=== PATIENT | female | born 1970 | race Caucasian/White ===

== ENCOUNTER 2020-02-06 15:50 | Emergency (ER) | payer OTHER ==
--- NOTE | 2020-02-06 17:00 | EDM.PDOC ---
ED HPI GENERAL MEDICAL PROBLEM - General Chief Complaint: Upper Extremity Injury/Pain Stated Complaint: SWELLING IN ELBOW Time Seen by Provider: 02/06/20 16:11 Source of Information: Reports: Patient History Limitations: Reports: No Limitations - History of Present Illness INITIAL COMMENTS - FREE TEXT/NARRATIVE: Pt. presents to ER with complaints of swelling and redness to L elbow. Pt. states that the symptoms started several days ago. Denies any fever or chills. No nausea or vomiting. Pt. denies any history of MRSA in the past. Pt. states that the symptoms are isolated to the L elbow. Pt. denies any chest pain, shortness of breath, lightheadedness, or numbness/tingling in the distal portion of the extremity. Onset: Today Location: Reports: Upper Extremity, Left Quality: Reports: Throbbing Severity: Severe Improves with: Reports: Rest Worsens with: Reports: Movement Associated Symptoms: Denies: Fever/Chills Left Elbow Pain Score (Numeric/FACES): 8 - Related Data Allergies Allergy/AdvReac Type Severity Reaction Status Date / Time Penicillins Allergy Rash Verified 02/06/20 16:15 Home Meds: Home Meds Acetaminophen 650 mg PO Q6HR PRN 06/13/13 [History] Aspirin [Halfprin] 81 mg PO DAILY 06/13/13 [History] Cyclobenzaprine [Flexeril] 10 mg PO BEDTIME PRN 06/13/13 [History] Ibuprofen 200 mg PO Q6HR PRN 06/13/13 [History] Metoprolol Succinate [Toprol XL] 50 mg PO DAILY 06/13/13 [History] Telmisartan [Micardis] 80 mg PO DAILY 06/13/13 [History] Metoprolol Tartrate 100 mg PO DAILY 02/06/20 [History] Past Medical History Cardiovascular History: Reports: Hypertension - Past Surgical History GI Surgical History: Reports: Appendectomy Female Surgical History: Reports: Section, Hysterectomy Social & Family History - Tobacco Use Smoking Status *Q: Never Smoker - Alcohol Use Days Per Week of Alcohol Use: 7 Number of Drinks Per Day: 1 Total Drinks Per Week: 7 - Recreational Drug Use Recreational Drug Use: No Review of Systems - Review of Systems Review Of Systems: See Below Constitutional: Reports: No Symptoms Eyes: Reports: No Symptoms Ears: Reports: No Symptoms Nose: Reports: No Symptoms Mouth/Throat: Reports: No Symptoms Respiratory: Reports: No Symptoms Cardiovascular: Reports: No Symptoms GI/Abdominal: Reports: No Symptoms Genitourinary: Reports: No Symptoms Musculoskeletal: Reports: Arm Pain Skin: Reports: No Symptoms Neurological: Reports: No Symptoms Psychiatric: Reports: No Symptoms ED EXAM, GENERAL - Physical Exam Exam: See Below Exam Limited By: No Limitations General Appearance: Alert, WD/WN, No Apparent Distress Respiratory/Chest: No Respiratory Distress, Lungs Clear, Normal Breath Sounds, No Accessory Muscle Use, Chest Non-Tender Cardiovascular: Normal Peripheral Pulses, Regular Rate, Rhythm, No Edema, No Gallop, No JVD, No Murmur Peripheral Pulses: 4+: Radial (L), Radial (R) Extremities: Other (area of cellulitis noted to L elbow. No obvious abscess noted. There appears to be an area that was open but the patient denies any discharge from the area. No palpable abscess noted. Area measures 13x14 cm and had been outlined in ink.) Course - Vital Signs Last Recorded V/S: Last Vital Signs Temp 36.6 C 02/06/20 16:11 Pulse 87 02/06/20 17:45 Resp 16 02/06/20 17:45 BP 160/98 H 02/06/20 17:45 Pulse Ox 97 02/06/20 17:45 - Orders/Labs/Meds Orders: Active Orders 24 hr Category Date Time Status CULTURE BLOOD [BC] Stat Lab 02/06/20 16:25 Received CULTURE BLOOD [BC] Stat Lab 02/06/20 16:31 Received Blood Culture x2 Reflex Set [OM.PC] Stat Oth 02/06/20 16:11 Ordered Labs: Laboratory Tests 02/06/20 02/06/20 02/06/20 Range/Units 16:25 16:25 16:25 WBC 12.9 H (4.0-10.0) x10^3/uL RBC 4.21 (4.00-5.50) x10^6/uL Hgb 13.1 (12.0-16.0) g/dL Hct 38.5 (33.0-47.0) % MCV 91.4 (78.0-93.0) fL MCH 31.1 (26.0-32.0) pg MCHC 34.0 (32.0-36.0) g/dL RDW Coeff of Manisha 12.7 (10.0-15.0) % Plt Count 249 (130-400) x10^3/uL Neut % (Auto) 77.0 (50.0-80.0) % Lymph % (Auto) 16.1 L (25.0-50.0) % [place] % (Auto) 5.7 (2.0-11.0) % Eos % (Auto) 1.0 (0.0-4.0) % Baso % (Auto) 0.2 (0.2-1.2) % Sodium 137 (136-145) mmol/L Potassium 3.0 L (3.5-5.1) mmol/L Chloride 98 (98-107) mmol/L Carbon Dioxide 29 (21-32) mmol/L Anion Gap 13.0 (10-20) mmol/L BUN 9 (7-18) mg/dL Creatinine 0.7 (0.55-1.02) mg/dL Est Cr Clr Drug Dosing 91.01 mL/min Estimated GFR (MDRD) > 60 Glucose 120 H (74-106) mg/dL Lactic Acid 1.2 (0.4-2.0) mmol/L Calcium 8.5 (8.5-10.1) mg/dL Corrected Calcium 8.58 (8.5-10.1) mg/dL Total Bilirubin 0.7 (0.2-1.0) mg/dL AST 26 (15-37) U/L ALT 51 (14-59) U/L Alkaline Phosphatase 90 (46-116) U/L C-Reactive Protein 2.6 H (<=0.9) mg/dL Total Protein 7.4 (6.4-8.2) g/dL Albumin 3.9 (3.4-5.0) g/dL Globulin 3.5 Albumin/Globulin Ratio 1.11 Meds: Medications Discontinued Medications Generic Name Dose Route Start Last Admin Trade Name Jaxq PRN Reason Stop Dose Admin Hydrocodone Bitart/Acetaminophen 1 packet 02/06/20 17:13 02/06/20 17:25 Take Home: Acetam/Hydrocodon 325-5 Mg, 5 Pack PO 02/06/20 17:14 1 packet ONETIME ONE Administration Cefazolin Sodium 2 gm 02/06/20 17:09 02/06/20 17:28 Ancef IVPUSH 02/06/20 17:10 2 gm ONETIME ONE Administration Cefazolin Sodium Confirm 02/06/20 17:35 02/06/20 17:36 Ancef Administered 02/06/20 17:36 Not Given Dose 1 gm .ROUTE .STK-MED ONE Trimethoprim/Sulfamethoxazole 1 packet 02/06/20 17:13 02/06/20 17:25 Take Home: Sulfameth/Trimet 800-160mg, 2 Pack PO 02/06/20 17:14 1 packet ONETIME ONE Administration Departure - Departure Time of Disposition: 18:08 Disposition: Home, Self-Care 01 Clinical Impression: Cellulitis - Discharge Information Instructions: Acetaminophen; Hydrocodone tablets or capsules, Cellulitis, Adult, Sulfamethoxazole; Trimethoprim, SMX-TMP tablets, Probiotics Referrals: Tanika Marti DO [Primary Care Provider] - Forms: ED Department Discharge Additional Instructions: Bactrim DS 1 twice daily for 10 days [place] 5/325mg 1 every 6 hours as needed for pain You can also take aleve or ibuprofen to help with the discomfort/fever. Follow-up in clinic on Thursday, return to ER as needed. Sepsis Event Note (ED) - Evaluation Sepsis Screening Result: No Definite Risk - Focused Exam Vital Signs: Vital Signs Temp Pulse Resp BP Pulse Ox 02/06/20 17:45 87 16 160/98 H 97 02/06/20 16:11 36.6 C 89 16 149/91 H 97 - Problem List Review Problem List Initiated/Reviewed/Updated: Yes - My Orders Last 24 Hours: My Active Orders 02/06/20 16:11 Blood Culture x2 Reflex Set [OM.PC] Stat 02/06/20 16:25 CULTURE BLOOD [BC] Stat 02/06/20 16:31 CULTURE BLOOD [BC] Stat - Assessment/Plan Last 24 Hours: My Active Orders 02/06/20 16:11 Blood Culture x2 Reflex Set [OM.PC] Stat 02/06/20 16:25 CULTURE BLOOD [BC] Stat 02/06/20 16:31 CULTURE BLOOD [BC] Stat Plan: Bactrim DS 1 twice daily for 10 days [place] 5/325mg 1 every 6 hours as needed for pain You can also take aleve or ibuprofen to help with the discomfort/fever. Follow-up in clinic on Thursday, return to ER as needed.
[2020-02-06 17:04] LABS: CHLORIDE,CL 98 mmol/L (98-107); SODIUM,NA 137 mmol/L (136-145)
[2020-02-06] MEDS ORDERED: ceFAZolin 1 GM Vial IVPUSH ONE (17:09)
[2020-02-06] MEDS ORDERED: Take Home: Sulfamethoxazole/Trimethoprim 800-160 MG Tab, 2 Tab Pack PO ONE (17:13)
[2020-02-06] MEDS ORDERED: Take Home: Acetaminophen/HYDROcodone 325-5 MG, 5 Tab Pack PO ONE (17:13)
[2020-02-06] MEDS ORDERED: ceFAZolin 1 GM Vial ONE (17:35)
== END 2020-02-06 17:45 | disposition home or self-care (01) ==
LOC: VM.ED 15:50
DX: L03.114 Cellulitis of left upper limb (principal); I10 Essential (primary) hypertension; Z88.0 Allergy status to penicillin; Z79.82 Long term (current) use of aspirin; Z79.899 Other long term (current) drug therapy
CPT/HCPCS: 36415; 80053; 83605; 85025; 86140; 87040; 96374; 99283; A9270; J0690